=== PATIENT | female | born 1945 | race Caucasian/White ===

== ENCOUNTER 2017-07-14 10:24 | Emergency (ER) | payer BC ==
[~2017-07-14] VITALS: Ht 170.2 cm; Wt 105.1 kg
[~2017-07-14 10:24] MED LIST: "\\\"CHOLESTEROL MED\\\"" PO; ATIVAN PO; CIPRO500 MG PO; GLUCOPHAGE PO; LISINOPRIL PO; NORVASC PO; SKELAXIN PO; SYNTHROID PO; TOPROL PO; VALIUM5 MG PO; ZOLOFT PO; [UNRECOGNIZED DRUG - OTHER] PO; [UNRECOGNIZED DRUG - REMARK]
[2017-07-14] MEDS ORDERED: MOTRIN600 MG PO (11:54)
[2017-07-14] MEDS ORDERED: NORCO 10/3251 TABLET PO (11:54)
[2017-07-14 12:55] VITALS: BP 161/85
== END 2017-07-14 13:00 | disposition home or self-care (01) ==
LOC: EME 10:24
DX: M17.12 Unilateral primary osteoarthritis, left knee (principal); M23.92 Unspecified internal derangement of left knee; G89.29 Other chronic pain; G20 Parkinson's disease; E78.5 Hyperlipidemia, unspecified; I10 Essential (primary) hypertension; Z88.2 Allergy status to sulfonamides
CPT/HCPCS: 73564; 99281; 99284; J3010

== ENCOUNTER 2017-10-05 14:09 | Emergency (ER) | payer BC ==
[~2017-10-05] VITALS: Ht 167.6 cm; Wt 101.6 kg
[~2017-10-05 14:09] MED LIST changes: +MOTRIN600 MG PO; +NORCO 10/3251 TABLET PO
[2017-10-05 14:44] LABS: HEMATOCRIT 41.1 % (36.0-46.0); MCH 30.2 PG (29.0-34.0); MCHC 34.1 G/DL (30.0-36.0); MCV 88.6 FL (83-99); PLATELET COUNT 226 K/uL (156-360); RBC DIS.WIDTH-CV 13.1 % (11.8-14.6); RBC DIS.WIDTH-SD 42.3 % (39-53); RED BLOOD COUNT 4.64 M/uL (3.80-5.20); WHITE BLOOD COUNT 7.8 K/uL (4.1-10.2)
[2017-10-05 14:55] LABS: CHLORIDE 102 mEq/L (99-109); POTASSIUM 3.9 mEq/L (3.7-5.4); SODIUM 141 mEq/L (136-147)
[2017-10-05 14:56] LABS: GLUCOSE 90 mg/dL (70-99)
[2017-10-05 15:00] LABS: CREATININE 0.6 mg/dL (0.6-1.3); GFR ESTIMATE (CALCULATED) > 59 mL/min/
[2017-10-05 15:01] LABS: UREA NITROGEN (BUN) 11 mg/dL (9-23)
[2017-10-05] MEDS ORDERED: ZITHROMAX Z-PA250 MG PO (15:23)
[2017-10-05] MEDS ORDERED: TESSALON PERLE100 MG PO (15:23)
[2017-10-05] MEDS ORDERED: VENTOLIN HFA18 GM IH (15:39)
[2017-10-05 15:57] VITALS: BP 144/84
== END 2017-10-05 16:04 | disposition home or self-care (01) ==
LOC: EME 14:09
DX: J20.9 Acute bronchitis, unspecified (principal); F32.9 Major depressive disorder, single episode, unspecified; E11.9 Type 2 diabetes mellitus without complications; E78.5 Hyperlipidemia, unspecified; I10 Essential (primary) hypertension; E03.9 Hypothyroidism, unspecified; Z88.2 Allergy status to sulfonamides
CPT/HCPCS: 71046; 80048; 85027; 94640; 99281; 99284

== ENCOUNTER → 2017-12-31 | Outpatient (CLI) | payer BC ==
[~2017-12-31] MED LIST changes: +TESSALON PERLE100 MG PO; +VENTOLIN HFA18 GM IH; +ZITHROMAX Z-PA250 MG PO
== END | disposition home or self-care (01) ==
DX: Z01.818 Encounter for other preprocedural examination (principal); M17.12 Unilateral primary osteoarthritis, left knee; R26.2 Difficulty in walking, not elsewhere classified; M25.562 Pain in left knee; M25.662 Stiffness of left knee, not elsewhere classified; Z74.1 Need for assistance with personal care; M62.81 Muscle weakness (generalized)
CPT/HCPCS: 97161 GP; 97165 GO; 97530 GP; 97535 GO